=== PATIENT | male | born 1955 | race Caucasian/White ===

== ENCOUNTER → 2017-05-04 | Outpatient (CLI) | payer BC ==
[~2017-05-04] MED LIST: ACET-24 PO; ASPEC81 PO; CLB200 PO; IBUP-103 PO; METF500T5 PO; RXC5 PO; SENN-61 PO
== END | disposition home or self-care (01) ==
LOC: C.LABBFT 11:41
PROVIDERS: ATTEND Nurse Practitioner
DX: E11.65 Type 2 diabetes mellitus with hyperglycemia (principal)

== ENCOUNTER 2017-05-09 07:57 | Inpatient (IN) | payer BC ==
[2017-04-12 11:26] VITALS: Ht 167.6 cm; Wt 93.3 kg
--- NOTE | 2017-04-12 11:46 | PAT Medication Instructions ---
Service Date Apr 12, 2017. 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
--- NOTE | 2017-04-12 12:42 | DIAGNOSTIC IMAGING REPORT ---
CHEST 2 VIEWS ROUTINE CLINICAL HISTORY: PAT preoperative evaluation COMPARISON STUDY: No previous studies for comparison. FINDINGS: The bones soft tissues and hemidiaphragms are normal. The cardiomediastinal silhouette is normal. The lungs are clear. The pulmonary vasculature is normal. IMPRESSION: Negative chest. The above report was generated using voice recognition software. It may contain grammatical, syntax or spelling errors. Electronically signed by: Tam Mcmahon M.D. 04/12/2017 12:41 PM Dictated Date/Time: 04/12/2017 12:40 PM
[2017-04-12 13:29] LABS: BASO % 0.7 %; BASO ABS # 0.05 K/uL (0-0.2); EOS % 2.4 %; EOS ABS # 0.17 K/uL (0-0.5); HEMATOCRIT 46.7 % (42-52); HEMOGLOBIN 16.1 g/dL (14.0-18.0); IG# 0.02 K/uL (0.00-0.02); LYMPH % 24.6 %; LYMPH ABS # 1.77 K/uL (1.2-3.4); MEAN CELL VOLUME 88.6 fL (80-100); MEAN CORPUSCULAR HEMOGLOBIN 30.6 pg (25-34); MEAN CORPUSCULAR HGB CONC 34.5 g/dl (32-36); MEAN PLATELET VOLUME 10.5 fL (7.4-10.4); MONO % 7.9 %; MONO ABS # 0.57 K/uL (0.11-0.59); NEUT % 64.1 %; NEUT ABS # 4.61 K/uL (1.4-6.5); PLATELET COUNT 177 K/uL (130-400); RED CELL DISTRIBUTION WIDTH CV 13.5 % (11.5-14.5); RED CELL DISTRIBUTION WIDTH SD 43.6 fL (36.4-46.3); WHITE BLOOD COUNT 7.19 K/uL (4.8-10.8)
[2017-04-12 13:41] LABS: PTT PATIENT 29.3 SECONDS (21.0-31.0)
[2017-04-12 14:17] LABS: ALBUMIN 3.7 gm/dl (3.4-5.0); CREATININE 0.93 mg/dl (0.60-1.40); POTASSIUM 3.9 mmol/L (3.5-5.1)
--- NOTE | 2017-04-19 13:27 | HISTORY & PHYSICAL EXAMINATION ---
DATE OF ADMISSION: 05/09/2017 CHIEF COMPLAINT: Left knee pain. HISTORY OF PRESENT ILLNESS: Mr. Geller is a 62-year-old male with a 14-year history of left knee pain. The patient rates his pain as 7/10. He has pain with his daily activities. He has limited standing and walking tolerance. Pain is worse with weightbearing. He has had knee arthroscopy, injections, home exercise program, and anti-inflammatories without relief. He has failed conservative treatment and is now scheduled for left knee replacement with Dr. Diaz. PAST MEDICAL HISTORY: Benign. He denies heart disease, diabetes or DVT. PAST SURGICAL HISTORY: Bilateral knee arthroscopy. SOCIAL HISTORY: The patient rarely drinks alcohol. He denies tobacco use. 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 FAMILY HISTORY: Positive for hypertension, negative for DVT. MEDICATIONS: Advil p.r.n. ALLERGIES: None. REVIEW OF SYSTEMS: See HPI. Ten other systems reviewed, all negative. PHYSICAL EXAMINATION: VITAL SIGNS: Height 5 feet 6 inches, weight 207 pounds, BMI 33. GENERAL: This is a well-developed, well-nourished male who is alert and oriented x3. Mood and affect are appropriate. HEENT: Normocephalic, atraumatic. Mucous membranes are moist and intact. NECK: Supple without lymphadenopathy. HEART: Regular rate and rhythm without murmurs, rubs or gallops. LUNGS: Clear to auscultation without wheezes or rhonchi. ABDOMEN: Soft and nontender. Bowel sounds are equal and active. EXTREMITIES: No ecchymosis, redness or warmth. He has neutral alignment. Range of motion is from 0-115 degrees with +1 laxity. He has no distal edema, no effusion. He is neurovascularly intact. X-RAY EXAMINATION: AP and lateral views show joint space narrowing and osteophyte formation. IMPRESSION: Degenerative joint disease, left knee. PLAN: The patient will be admitted for a left total knee arthroplasty. We will plan on aspirin for DVT prophylaxis. The patient will have [facility] for home PT and referral has been placed preoperatively.
[~2017-05-09] VITALS: Ht 167.6 cm; Wt 93.3 kg
[2017-05-09] VITALS (7 sets, daily range): BP systolic 107–151; BP diastolic 68–84; PULSE 58–76; TEMP 36.4–36.8; O2SAT 94–97
[2017-05-09] MEDS: TRANEXAMIC ACID INJ 1,000 MG in SYRINGE 0 ML IV SCH ×2 (06:30→09:35)
[~2017-05-09 07:57] MED LIST changes: -ACET-24 PO; +ACETAMINOPHEN 500 MG TAB PO SCH; -ASPEC81 PO; +ATROPINE SULFATE 0.1 MG/ML 5ML SYR IV PRN; +BUPIVACAINE 0.25% 30 ML VIAL ONE; +BUPIVACAINE 0.5 % 5 MG/1 ML PF 10ML VIAL ONE; +CEFAZOLIN 2000MG IV PUSH 15 ML IV SCH; -CLB200 PO; +CeleBREX 200 MG CAP PO SCH; +DEXAMETHASONE 4 MG TAB PO SCH; +EpHEDrine SULFATE INJ 50 MG/ML AMP IV PRN; +FAMOTIDINE 20 MG TAB PO SCH; +FENTANYL CITRATE INJ 50 MCG/1 ML 2 ML VIAL IV PRN; +FENTANYL CITRATE INJ 50 MCG/1 ML 2 ML VIAL ONE; +GABAPENTIN 300 MG CAP PO SCH; +LACTATED RINGER'S 1000ML 1,000 ML IV SCH; +LACTATED RINGER'S 1000ML IV SCH; +LACTATED RINGER'S 500 ML IV SCH; -METF500T5 PO; +METOCLOPRAMIDE HCL 10 MG TAB PO SCH; +MIDAZOLAM HCL 1 MG/ML 2ML VIAL ONE; +ONDANSETRON INJ 2 MG/ML 2 ML VIAL IV PRN; +ROPIVACAINE 5MG/ML 30 ML 150 MG, BUPIVACAINE 0.5% MPF INJ 30 ML, EpINEphrine HCL INJ 0.... INFIL SCH; -RXC5 PO; -SENN-61 PO
--- NOTE | 2017-05-09 08:33 | History & Physical Bridge Note ---
H&P Re-Evaluation Bridge Note: I have examined the patient, reviewed the History & Physical and in the interval since the performance of the History & Physical I have noted the following changes of clinical significance: No changes noted
[2017-05-09] MEDS ORDERED: METF500T5 PO (08:39)
[2017-05-09] MEDS ORDERED: ORTHO JOINT ANESTHETIC ONE (09:47)
[2017-05-09] MEDS ORDERED: LIDOCAINE HCL 2% 2 ML VIAL (20MG/ML) ONE (09:47)
[2017-05-09] MEDS ORDERED: PROPOFOL IV EMULSION 10 MG/ML 20 ML VIAL IV ONE (09:47)
[2017-05-09] MEDS ORDERED: POVIDONE-IODINE OP SOLN 30 ML BTL ONE (09:47)
[2017-05-09] MEDS ORDERED: ONDANSETRON INJ 2 MG/ML 2 ML VIAL ONE (09:47)
[2017-05-09] MEDS ORDERED: BACITRACIN 50000 UNIT VIAL ONE (09:47)
[2017-05-09] MEDS ORDERED: MIDAZOLAM HCL 1 MG/ML 2ML VIAL ONE (10:48)
--- NOTE | 2017-05-09 11:19 | [facility] Post Operative Brief Note ---
Immediate Operative Summary Operative Date May 09, 2017. Pre-Operative Diagnosis Degenerative Joint Disease, Left Knee Post-Operative Diagnosis same Procedure(s) Performed Ltka Surgeon Dr. Diaz Overlock Collar Setter Surgeon(s) Berna Gallagher PA-C Estimated Blood Loss 10cc Findings Consistent with Post-Op Diagnosis Specimens A: Left knee bone and tissue Anesthesia Type MAC Spinal Regional Complication(s) none Disposition Accompanied Pt To Recover: no Disposition: Recovery Room / PACU
[2017-05-09] MEDS ORDERED: TRAMADOL HCL 50 MG TAB PO PRN (12:00)
[2017-05-09] MEDS ORDERED: SOD PHOSPHATE/SOD BIPHOSPHATE ENEMA 132 ML BTL PR PRN (12:00)
[2017-05-09] MEDS ORDERED: ZOLPIDEM TARTRATE 5 MG TAB PO PRN (12:00)
[2017-05-09] MEDS ORDERED: MoRPHine SULFATE 2 MG/ML CARP IV PRN (12:00)
[2017-05-09] MEDS ORDERED: MAGNESIUM HYDROXIDE SUSP 30 ML UDC PO PRN (12:00)
[2017-05-09] MEDS ORDERED: BISACODYL 10 MG SUPP PR PRN (12:00)
[2017-05-09] MEDS ORDERED: ONDANSETRON INJ 2 MG/ML 2 ML VIAL IV PRN (12:00)
[2017-05-09] MEDS ORDERED: ALUMINUM/MAGNESIUM/SIMETH (MAALOX MAX) 30 ML UDC PO PRN (12:00)
--- NOTE | 2017-05-09 12:26 | Anesthesiology Progress Note ---
Anesthesia Post Op Note Date & Time May 09, 2017 at 12:26 Vital Signs Pain Intensity: 0 Vital Signs Past 12 Hours Date Time Temp Pulse Resp B/P (MAP) Pulse Ox O2 Delivery O2 Flow Rate FiO2 05/09/17 12:20 36.2 57 16 118/66 93 Nasal Cannula 2 05/09/17 12:10 57 16 95/68 95 Nasal Cannula 2 05/09/17 12:00 58 16 110/62 94 Nasal Cannula 2 05/09/17 11:54 36.6 71 14 123/62 94 Nasal Cannula 2 05/09/17 08:40 36.6 76 18 139/84 94 Room Air Notes Mental Status: alert / awake / arousable, participated in evaluation Pt Amnestic to Procedure: Yes Nausea / Vomiting: adequately controlled Pain: adequately controlled Airway Patency, RR, SpO2: stable & adequate BP & HR: stable & adequate Hydration State: stable & adequate Neuraxial Anesthesia: was administered, sensory block is resolving Anesthetic Complications: no major complications apparent
--- NOTE | 2017-05-09 12:28 | DIAGNOSTIC IMAGING REPORT ---
L KNEE 1 OR 2 VIEWS ROUTINE HISTORY: 62 years-old Male AP/LATERAL IN PACU LEFT KNEE left knee total joint arthroplasty and patella resurfacing. Degenerative joint disease. COMPARISON: None available TECHNIQUE: 2 views of the left knee FINDINGS: Postoperative changes compatible with recent left knee total joint arthroplasty and patella resurfacing. Alignment is satisfactory. No periprosthetic fracture or retained foreign body identified. Overlying gauze material is noted along with a surgical drain which is in place along with expected postsurgical soft tissue swelling and deep tissue air. IMPRESSION: Left knee total joint arthroplasty and patellar resurfacing with satisfactory alignment. The above report was generated using voice recognition software. It may contain grammatical, syntax or spelling errors. Electronically signed by: Damion Connelly M.D. 05/09/2017 12:27 PM Dictated Date/Time: 05/09/2017 12:26 PM
--- NOTE | 2017-05-09 12:31 | OPERATIVE REPORT ---
DATE OF OPERATION: 05/09/2017 PREOPERATIVE DIAGNOSIS: Osteoarthritis, left knee. POSTOPERATIVE DIAGNOSIS: Osteoarthritis, left knee. PROCEDURE: Left total knee arthroplasty. SURGEON: Dr. Diaz. FARM REPORTER: ANDRADE Joseph ANESTHESIA: Spinal. COMPLICATIONS: None. IMPLANTS USED: Femoral size 5, tibia size 4, patella size 36, and tibial poly 13. OPERATION AND FINDINGS: Following induction of spinal anesthesia, the patient's left leg was prepped and draped in the usual sterile manner. Limb was exsanguinated with an Esmarch bandage and tourniquet was inflated to 350 mmHg. A longitudinal incision was made anteriorly. Subcutaneous tissue was sharply dissected. Electrocautery was used for hemostasis. Prepatellar bursa was incised and median parapatellar incision was performed. Patella was everted and the knee was flexed. Fat pad was removed to aid in visualization and the anterior and posterior cruciate ligaments were removed. The medial face of the tibia was cleared of soft tissue first with a Bovie and a Mccray elevator. This tissue was retracted posteriorly using a blunt Hohmann. A Gaytan retractor was used to expose the synovium above on the anterior aspect of the femur and this was removed down to bone. The PSI guide was placed on the distal femur and two pins were placed anteriorly and kept in position and two additional pins were placed distally and removed. The distal femoral cutting block was placed in position and the distal femoral cut was used in the +0 setting. Next, the cutting block was removed and the femoral 5 block was placed in the distal end of the femur. Care was taken to ensure appropriate external rotation and feeler gauge was used to ensure no notching would occur. The femoral block was centered on the distal femur and in the medial and lateral direction and was fixed using two bone screws. The gold pins were then removed. The oscillating saw was used to create the bone cuts and the distal femoral cutting block was removed and the reciprocating saw was used to further trim the femoral cuts as well as a deep in the area for the trochlear groove. Next, posterior condyle remnants were removed. Following this, a meniscal clamp and knife were utilized to remove the anterior portion of both medial and lateral meniscus. The proximal tibia PSI guide was placed into position and the proximal tibial cutting guide was screwed into position. The extra medullary alignment guide was utilized to ensure appropriate alignment. The proximal tibia was cut and the proximal tibial cutting block was removed and this bone fragment was removed. The appropriate guide was used to perform the notch cut on the distal femur and a lamina staff respiratory therapist and a cochlear knife were utilized to finish both medial and lateral meniscectomies to remove any remnants of the posterior or anterior cruciate ligaments. Following this, the distal femoral component was impacted into position and blunt Tay was used to sublux the tibia anteriorly. The proximal tibia was sized and a 4 tibial tray was chosen as the size to be used. This was put into position and appropriate external rotation and a double check with extramedullary alignment guide was performed. The canal for the tibial stem was prepared first with a 17 mm drill and then the punch and a mallet and the trial tibial poly was placed. A 13 was chosen the size to be used. It was brought to extension and the patella was prepared with the patellar reamer. A 36 component was chosen the size to be used. The trial component was placed and knee was taken through a full range of motion and there was found to be no lateral subluxation of the tibia. No lateral release was required. The trials were all removed. The final components were obtained and assembled. Cement was mixed. The knee was thoroughly irrigated and the ortho mix was injected about the knee joint. The final components were cemented into position. After thoroughly suctioning and drying the bone ends, all excess cement was removed. The knee was held in extension while the cement hardened. The wound was irrigated and closed over a Hemovac drain. #1 Vicryl was used to close the extensor mechanism. Subcutaneous tissues closed using 0 Dexon. Skin was closed with gila. Sterile dressing of Adaptic, 4 x 4's, sterile Webril, and Greg was applied. The patient tolerated the procedure well. Due to the complex nature of the procedure, the entire surgery was performed with the operational assistance of ANDRADE Joseph. The front office medical assistant, under direct supervision, was involved in the actual performance of all aspects of the surgical procedure including hemostasis, tissue retraction and incision, instrument management, patient positioning, and wound closure. DISPOSITION: Recovery room, stable. I attest to the content of the Intraoperative Record and any orders documented therein. Any exception s are noted below.
[2017-05-09] MEDS ORDERED: PHARMACY GLYCEMIC MGMT CONSULT PRN (13:55)
[2017-05-09] MEDS: ACETAMINOPHEN 500 MG TAB PO SCH ×2 (14:06→21:12)
[2017-05-09] MEDS: KETOROLAC TROMETHAMINE 30 MG/ML VIAL IV. SCH ×2 (14:06→21:11)
--- NOTE | 2017-05-09 15:11 | Pharmacy Progress Note ---
Glycemic Control Intl Consult Date of Service May 09, 2017. Scope Glycemic Pharmacist consulted by Xochitl DOWELL on 05/09/17 for glycemic control and to write orders per [facility] inpatient glycemic control protocol Objective Weight (Kilograms): 93.300 Accuchecks BSG (last 24hrs): Test 05/09/17 08:28 05/09/17 12:13 05/09/17 13:37 Bedside Glucose 157 mg/dl (70-99) 171 mg/dl (70-99) 182 mg/dl (70-99) Recent Pertinent Medications Outpatient Anti-diabetic Regimen: * Metformin ER 500 mg PO BID * A1c = 8 % 04/12/17 Risk Factors for Insulin Resistance: * Steroids: Ortho + dexamethasone 8 mg PO pre-op * Recent Surgery: POD #0 L-TKA * Diet: T2DM Assessment & Plan ASSESSMENT: * 62 yr old T2DM male s/p L-TKA. * Pt is maintained on oral antidiabetic agents as an outpatient. Will hold oral agents for admission and utilize SQ basal bolus insulin regimen which is the recommended regimen for inpatient glycemic control. * Will initiate weight based insulin dosing for insulin nehal patient and titrate based on BSG trends. PLAN FOR INPATIENT GLYCEMIC CONTROL: * Holding metformin - will resume once evidence of stable renal function and patient tolerating oral diet * Basal insulin * Lantus 23 units SQ x 1 with dinner * Bolus Insulin * NOVOLOG per scale ACHS or Q6hrs while NPO * Goal Range: Low 110 mg/dL - High 140 mg/dL * Correction Factor: 15 mg/dL/unit * Nutritional / Prandial insulin per carb ratio of 1 unit per 6 grams CHO consumed * Overnight checks at 00 and 04 * Please note that the plan above was derived based on current level of insulin resistance and hospital stress. These recommendations are appropriate for inpatient admission only. Plan of care upon discharge will need to be reassessed to avoid potential outpatient hypo/hyperglycemia. Thank you.
[2017-05-09] MEDS ORDERED: LANTUS PER UNIT CHARGE SQ ONE (16:00)
[2017-05-09] MEDS: SODIUM CHLORIDE 0.9% 1000ML 1,000 ML IV SCH (16:06)
[2017-05-09] MEDS: CEFAZOLIN IV 2,000 MG in SYRINGE 5 ML IV SCH (18:45)
[2017-05-09] MEDS: INSULIN ASPART 100 UNITS/ML 3 ML PEN SC SCH ×2 (18:52→21:25)
[2017-05-09] MEDS ORDERED: SENNA 8.6 MG TAB PO SCH (21:00)
[2017-05-09] MEDS: ASPIRIN 81 MG ECTAB PO SCH (21:09)
[2017-05-09] MEDS: OXYCODONE HCL IR 5 MG TAB (IMMEDIATE RELEASE) PO PRN (23:02)
[2017-05-10] MEDS: INSULIN ASPART 100 UNITS/ML 3 ML PEN SC SCH ×4 (00:27→14:00)
[2017-05-10] MEDS: SODIUM CHLORIDE 0.9% 1000ML 1,000 ML IV SCH ×2 (01:56→09:00)
[2017-05-10] MEDS: CEFAZOLIN IV 2,000 MG in SYRINGE 5 ML IV SCH (01:56)
[2017-05-10] MEDS: KETOROLAC TROMETHAMINE 30 MG/ML VIAL IV. SCH ×2 (01:57→07:52)
[2017-05-10 04:05] VITALS: BP 127/73; PULSE 68; TEMP 36.4; O2SAT 95
[2017-05-10] MEDS: ACETAMINOPHEN 500 MG TAB PO SCH ×2 (06:24→14:01)
[2017-05-10 06:26] LABS: HEMATOCRIT 43.4 % (42-52); HEMOGLOBIN 14.8 g/dL (14.0-18.0); MEAN CELL VOLUME 88.8 fL (80-100); MEAN CORPUSCULAR HEMOGLOBIN 30.3 pg (25-34); MEAN CORPUSCULAR HGB CONC 34.1 g/dl (32-36); MEAN PLATELET VOLUME 10.1 fL (7.4-10.4); PLATELET COUNT 227 K/uL (130-400); RED CELL DISTRIBUTION WIDTH CV 13.2 % (11.5-14.5); RED CELL DISTRIBUTION WIDTH SD 42.5 fL (36.4-46.3); WHITE BLOOD COUNT 17.52 K/uL (4.8-10.8)
[2017-05-10 06:59] LABS: CALCIUM 8.9 mg/dl (8.5-10.1); CREATININE 1.12 mg/dl (0.60-1.40); POTASSIUM 3.8 mmol/L (3.5-5.1)
[2017-05-10 07:49] VITALS: BP 145/85; PULSE 59; TEMP 36.8; O2SAT 94
[2017-05-10] MEDS ORDERED: LANTUS PER UNIT CHARGE SQ SCH ×2 (08:00→21:00)
--- NOTE | 2017-05-10 08:03 | Orthopedic Progress Note ---
Orthopedic Progress Note Date of Service May 10, 2017. Subjective Post OP Day: 1 Reports: feeling well, Denies: complaints Objective calves soft nontender, N/V intact, dressing C/D/I, A&O x3, toes mobile, hemovac drainage (75ml latest shift) Date Time Temp Pulse Resp B/P (MAP) Pulse Ox O2 Delivery O2 Flow Rate FiO2 05/10/17 07:49 36.8 59 20 145/85 (105) 94 05/10/17 07:20 Room Air 05/10/17 04:05 36.4 68 18 127/73 (91) 95 Room Air 05/09/17 23:25 95 Room Air 05/09/17 22:50 36.7 71 17 143/80 (101) 95 Room Air 05/09/17 20:15 36.4 70 18 151/78 (102) 95 Room Air 05/09/17 16:00 Room Air 05/09/17 13:39 36.6 63 20 143/81 (101) 96 Nasal Cannula 2.0 05/09/17 13:16 36.5 70 20 114/80 (91) 97 Nasal Cannula 2.0 05/09/17 12:45 Nasal Cannula 2.0 05/09/17 12:45 Nasal Cannula 2.0 05/09/17 12:45 36.8 58 16 107/68 (81) 97 Nasal Cannula 2.0 05/09/17 12:30 61 16 119/79 92 Nasal Cannula 2 05/09/17 12:20 36.2 57 16 118/66 93 Nasal Cannula 2 05/09/17 12:10 57 16 95/68 95 Nasal Cannula 2 05/09/17 12:00 58 16 110/62 94 Nasal Cannula 2 05/09/17 11:54 36.6 71 14 123/62 94 Nasal Cannula 2 05/09/17 08:40 36.6 76 18 139/84 94 Room Air Laboratory Results 24 Hours: Test 05/10/17 06:13 Hematocrit 43.4 % Hemoglobin 14.8 g/dL Assessment & Plan Assessment: POD 1 s/p Left TKA Plan: PT/OT today. Planning for home with home health Inhouse Planning Pain Management: Celebrex, Toradol, Morphine, PO Tylenol, Oxy IR DVT Prophylaxis: TEDs, SCDs, ASA Discharge Planning Discharge Planning: home with home health
[2017-05-10] MEDS: ASPIRIN 81 MG ECTAB PO SCH (08:40)
--- NOTE | 2017-05-10 08:54 | Pharmacy Progress Note ---
Glycemic Control Progress Note Date of Service May 10, 2017. Scope Glycemic Pharmacist consulted for glycemic control to write orders per [facility] inpatient glycemic control protocol. Objective Accuchecks BSG (last 24hrs): Test 05/09/17 12:13 05/09/17 13:37 05/09/17 16:50 05/09/17 20:47 Bedside Glucose 171 mg/dl (70-99) 182 mg/dl (70-99) 256 mg/dl (70-99) 244 mg/dl (70-99) Test 05/10/17 00:06 05/10/17 04:01 05/10/17 06:13 05/10/17 08:04 Bedside Glucose 156 mg/dl (70-99) 124 mg/dl (70-99) 138 mg/dl (70-99) Random Glucose 137 mg/dl (70-99) Outpatient Anti-Diabetic Meds * Metformin ER 500 mg PO BID * A1c = 8 % 04/12/17 Assessment & Plan ASSESSMENT: * 62 yr old T2DM male POD # 1 s/p L-TKA. Postoperative hyperglycemia resolved. * Fasting BSG of 138 mg/dL is near goal. Will give a small dose of Lantus this morning (based on weight/stress 1). * Prandial BSGs improving. Will loosen bolus insulin parameters since effect of dexamethasone should be wearing off at this point. * Patient is tolerating oral diet, Scr at baseline -> resume metformin starting with dinner PLAN FOR INPATIENT GLYCEMIC CONTROL: * Resume metformin ER 500 mg PO BID * Basal insulin * Lantus 9 units SQ this AM * Lantus 9 units SQ HS if BSG is > 150 mg/dL * Bolus Insulin - loosen * NOVOLOG per scale ACHS or Q6hrs while NPO * Goal Range: Low 110 mg/dL - High 140 mg/dL * Correction Factor: 20 mg/dL/unit * Nutritional / Prandial insulin per carb ratio of 1 unit per 8 grams CHO consumed DISCHARGE RECOMMENDATIONS: * A1c of 8% indicates less than ideal outpatient glycemic control * Recommend maximizing metformin dose as tolerated * Increase by 500 mg per week to maximum of 2000 mg twice daily with meals Thank you.
[2017-05-10] MEDS ORDERED: MULTIVITAMIN TAB PO SCH (09:00)
[2017-05-10] MEDS ORDERED: PANTOprazole SOD 40 MG TAB PO SCH (09:00)
--- NOTE | 2017-05-10 09:32 | Discharge Instructions ---
Discharge Instructions Date of Service May 10, 2017. Admission Reason for Admission: Left Knee Osteoarthritis Discharge Discharge Diagnosis / Problem: Left Knee Djd Discharge Goals Goal(s): Decrease discomfort, Improve function, Increase independence Activity Recommendations Activity Limitations: per Instructions/Follow-up section Weightbearing Status: Left weightbearing (as tolerated) . Instructions / Follow-Up Instructions / Follow-Up ACTIVITY RECOMMENDATIONS: SELF CARE INSTRUCTIONS AFTER TOTAL KNEE REPLACEMENT A. You may need to continue a physical therapy program after discharge from the hospital. There are several options available to you. Your doctor will assist you in selecting the best one for you. 1. An out-patient facility 2 to 3 times a week for therapy or home therapy. 2. Continue working on all exercises taught to you in the hospital. Your goals should be to increase bending of your knee to 90 degrees and beyond and to fully straighten your knee. B. You may progress at your own pace from walking with a walker or crutches to a cane; then to no assistive devices. C. Make walking a part of your daily routine. Be up as much as comfortable with rest periods throughout the day. Rest with leg elevation is very important. Use the ice wrap frequently for the first 3-4 weeks. D. There are no restrictions on activities. You may ride in a car, shop, participate in torpedo specialist and all social activities. E. Wear the long elastic stockings (PRISCILA hose) 20 hours a day for 2 weeks after surgery. They can be removed several times a day for laundering and for a bath. F. You may shower, no tub baths until cleared by your doctor. SPECIAL CARE INSTRUCTIONS: VERY IMPORTANT TO READ AND REVIEW A. There are a few signs you need to watch for after you are home. Call [facility] [place] if you notice any of the followin. Increased severe knee pain. Some pain is expected especially when you exercise. 2. Increased swelling in your leg or knee; pain or swelling of the calf muscle in either lower leg. 3. Any fluid drainage from the incision. 4. Shortness of breath or chest pain. B. Please call [facility] at if you have any concerns or questions about your operation or recovery. The doctor or his nurse will return your call promptly. C. You must take antibiotics before dental work, bladder, bowel or other surgery. Your doctor will provide you with a permanent care to carry describing this precaution. IMPORTANT: * REMEMBER TO TAKE ASPIRIN, 81 MG, TWICE DAILY FOR 4 WEEKS UNLESS OTHERWISE DIRECTED. THIS IS YOUR BLOOD THINNER. * HIGH RISK PATIENTS MAY BE PRESCRIBED A STRONGER BLOOD THINNER. THIS WILL BE PROVIDED AT DISCHARGE. * CALL IF INCREASED PAIN, REDNESS, DRAINAGE OR FEVER GREATER THAT 101. * WEAR PRISCILA HOSE 20 HOURS PER DAY FOR 2 WEEKS. * Silverlon- This is a large adhesive bandage that contains silver ions. This helps your incision heal by fighting off bacteria and protecting it from the outside environment. You are permitted to shower with this dressing. This will remain on your incision for 7 days and then should be removed. Some visible blood or drainage through the dressing window is normal. If there is significant drainage or leaking noted before the 7 days notify your doctor's office immediately. Once removed, keep incision clean and dry. If there is any drainage or redness noted, please call your surgeon. . * You have a Zipline closure system on your wound. It will remain on for 14 days. Keep the wound covered with 4x4 gauze or similar to protect the wound and to keep your clothes from getting caught on the Zipline. You may shower in 72 hours. Do not soak the wound. No tub baths. Clean around the wound but do not scrub it. Call the office if the wound appears to be opening or if Zipline is coming off prematurely. [phone] FOLLOW UP VISIT: If appointment is not already scheduled: Please call [facility] [place] to make a follow-up appointment for 2 weeks after your surgery at . Current Hospital Diet Patient's current hospital diet: Diabetes Type 2 Diet Discharge Diet Recommended Diet: Diabetes Type 2 Diet Procedures Procedures Performed: left total knee arthroplasty, cemented Pending Studies Studies pending at discharge: no Laboratory Results Hemoglobin A1c Test 04/12/17 11:58 Range/Units Estimated Average Glucose 183 mg/dl Hemoglobin A1c 8.0 H 4.5-5.6 % Lipid Panel Test 05/04/17 11:50 Range/Units Triglycerides Level 255 H 0-150 mg/dl Cholesterol Level 267 H 0-200 mg/dl HDL Cholesterol 24 mg/dl Cholesterol/HDL Ratio 11.1 LDL Cholesterol, Calculated 192 mg/dl Medical Emergencies . Who to Call and When: Medical Emergencies: If at any time you feel your situation is an emergency, please call 911 immediately. . Non-Emergent Contact Non-Emergency issues call your: Surgeon Call Non-Emergent contact if: temperature is above 101.5, your pain is not controlled, your pain is worsening, wound has increased drainage, wound has increased redness . "Provider Documentation" section prepared by Stephen Vogel. . VTE Core Measure Inpt VTE Proph given/why not?: Other Anticoagulation, T.E.D. Stockings, SCD's [place] Drug Monitoring Program Search Results: patient reviewed within database, no issues identified
[2017-05-10 10:02] VITALS: BP 163/89; PULSE 71; O2SAT 95
--- NOTE | 2017-05-10 11:09 | Anesthesiology Progress Note ---
Anesthesia Post Op Note Date & Time May 10, 2017 at 11:08 Vital Signs Pain Intensity: 0.0 Vital Signs Past 12 Hours Date Time Temp Pulse Resp B/P (MAP) Pulse Ox O2 Delivery O2 Flow Rate FiO2 05/10/17 07:49 36.8 59 20 145/85 (105) 94 05/10/17 07:20 Room Air 05/10/17 04:05 36.4 68 18 127/73 (91) 95 Room Air 05/09/17 23:25 95 Room Air Notes Mental Status: alert / awake / arousable, participated in evaluation Pt Amnestic to Procedure: Yes Nausea / Vomiting: adequately controlled Pain: adequately controlled Airway Patency, RR, SpO2: stable & adequate BP & HR: stable & adequate Hydration State: stable & adequate Neuraxial Anesthesia: sensory block resolved Anesthetic Complications: no major complications apparent
[2017-05-10] MEDS: OXYCODONE HCL IR 5 MG TAB (IMMEDIATE RELEASE) PO PRN (11:19)
[2017-05-10 12:12] VITALS: BP 159/73; PULSE 62; TEMP 36.5; O2SAT 97
[2017-05-10] MEDS ORDERED: ASPEC81 PO (13:56)
[2017-05-10] MEDS ORDERED: RXC5 PO (13:56)
[2017-05-10] MEDS ORDERED: SENN-61 PO (13:56)
[2017-05-10] MEDS ORDERED: ACET-24 PO (13:56)
[2017-05-10] MEDS ORDERED: CLB200 PO (13:56)
[2017-05-10 14:26] VITALS: BP 159/73; PULSE 62; TEMP 36.5; O2SAT 97
[2017-05-10] MEDS ORDERED: METFORMIN HCL 500 MG TABCR PO SCH (17:45)
[2017-05-10] MEDS ORDERED: CeleBREX 200 MG CAP PO SCH (21:00)
--- NOTE | 2017-05-12 09:01 | DISCHARGE SUMMARY ---
DISCHARGE DIAGNOSIS: Degenerative joint disease, left knee. SECONDARY DIAGNOSIS: None. CONSULTS: None. COMPLICATIONS: None. PROCEDURE: The patient underwent a left total knee arthroplasty with Dr. Diaz on 05/09/2017. BRIEF HISTORY: Please see previously dictated history and physical. HOSPITAL SUMMARY: The patient was admitted on the above day for the above procedure. Procedure went without complication. Postop day 1, the patient was feeling well without complaints. He denied chest pain or shortness of breath. Vital signs were stable. He was afebrile. Dressing was clean, dry and intact. He was neurovascularly intact. Calves were soft and nontender. Hemovac drained 75 mL. Hemoglobin was 14.8. The patient began physical therapy per protocol and was discharged to home later that day in stable condition. For further review please see the chart. Lab, x-ray data and discharge instructions as per chart.
== END 2017-05-10 14:55 | disposition home health service (06) | DRG 470 ==
LOC: C.ACU 07:57 → C.3E 12:08 → ENRESERV 12:18 → CANBEDREQ 17:13
PROC: 0SRD0J9 Replacement of Left Knee Joint with Synthetic Substitute, Cemented, Open Approach (ICD-10-PCS; principal; 2017-05-09 10:45)
DX: M17.12 Unilateral primary osteoarthritis, left knee (principal); Z82.49 Family history of ischemic heart disease and other diseases of the circulatory system

== ENCOUNTER → 2017-07-01 | Outpatient (CLI) | payer BC ==
[~2017-07-01] MED LIST changes: +ACET-24 PO; -ACETAMINOPHEN 500 MG TAB PO SCH; +ASPEC81 PO; -ATROPINE SULFATE 0.1 MG/ML 5ML SYR IV PRN; -BUPIVACAINE 0.25% 30 ML VIAL ONE; -BUPIVACAINE 0.5 % 5 MG/1 ML PF 10ML VIAL ONE; -CEFAZOLIN 2000MG IV PUSH 15 ML IV SCH; +CLB200 PO; -CeleBREX 200 MG CAP PO SCH; -DEXAMETHASONE 4 MG TAB PO SCH; -EpHEDrine SULFATE INJ 50 MG/ML AMP IV PRN; -FAMOTIDINE 20 MG TAB PO SCH; -FENTANYL CITRATE INJ 50 MCG/1 ML 2 ML VIAL IV PRN; -FENTANYL CITRATE INJ 50 MCG/1 ML 2 ML VIAL ONE; -GABAPENTIN 300 MG CAP PO SCH; -IBUP-103 PO; -LACTATED RINGER'S 1000ML 1,000 ML IV SCH; -LACTATED RINGER'S 1000ML IV SCH; -LACTATED RINGER'S 500 ML IV SCH; +METF500T5 PO; -METOCLOPRAMIDE HCL 10 MG TAB PO SCH; -MIDAZOLAM HCL 1 MG/ML 2ML VIAL ONE; -ONDANSETRON INJ 2 MG/ML 2 ML VIAL IV PRN; -ROPIVACAINE 5MG/ML 30 ML 150 MG, BUPIVACAINE 0.5% MPF INJ 30 ML, EpINEphrine HCL INJ 0.... INFIL SCH; +RXC5 PO; +SENN-61 PO
[2017-07-01 12:35] LABS: HEMOGLOBIN A1C 6.4 % (4.5-5.6)
[2017-07-01 12:50] LABS: ALBUMIN 3.9 gm/dl (3.4-5.0); ALT/SGPT 36 U/L (12-78); AST/SGOT 19 U/L (15-37); BLOOD UREA NITROGEN 16 mg/dl (7-18); CALCIUM 9.2 mg/dl (8.5-10.1); CARBON DIOXIDE 26 mmol/L (21-32); CHOLESTEROL 128 mg/dl (0-200); CREATININE 0.93 mg/dl (0.60-1.40); GLUCOSE 139 mg/dl (70-99); SODIUM 139 mmol/L (136-145)
[2017-07-01 12:52] LABS: ALKALINE PHOSPHATASE 76 U/L (45-117); LDL CHOLESTEROL CALCULATED 54 mg/dl; TOTAL PROTEIN 7.4 gm/dl (6.4-8.2)
== END | disposition home or self-care (01) ==
LOC: C.LABBFT 07:42
PROVIDERS: ATTEND Nurse Practitioner
DX: E11.65 Type 2 diabetes mellitus with hyperglycemia (principal); E78.00 Pure hypercholesterolemia, unspecified

== ENCOUNTER 2022-07-15 05:15 | Observation (INO) ==
--- NOTE | 2022-06-25 10:24 | PAT Medication Instructions ---
Medication Instructions Date of Service June 25, 2022 Home Medications Medication Instructions Recorded blood sugar diagnostic (OneTouch #200 ea 01/27/22 Verio test strips) dulaglutide 4.5 mg/0.5 mL 4.5 mg (0.5 mL) subcut Q7D #2 mL 06/02/22 subcutaneous pen injector aspirin 81 mg tablet,delayed release 81 mg PO HS dulaglutide 4.5 mg/0.5 mL subcutaneous pen injector 4.5 mg (0.5 mL) subcut Q7D amlodipine 10 mg tablet 10 mg PO HS empagliflozin 10 mg tablet (Jardiance) 10 mg PO QAM metformin 500 mg tablet,extended release 24 hr 1,000 mg PO HS rosuvastatin 40 mg tablet 40 mg PO HS ticagrelor 90 mg tablet (Brilinta) 90 mg PO HS Continue as directed dulaglutide 4.5 mg/0.5 mL subcutaneous pen injector 4.5 mg (0.5 mL) subcut Q7D ASK your prescriber and surgeon ticagrelor 90 mg tablet (Brilinta) 90 mg PO HS (in order for spinal anesthesia, ticagrelor/Brilinta needs to be stopped 7 days before surgery. Please check if okay with doctor that prescribes this to you) STOP taking 48 hours before surgery metformin 500 mg tablet,extended release 24 hr 1,000 mg PO HS Take evening before surgery aspirin 81 mg tablet,delayed release 81 mg PO HS (continue as normal unless told otherwise by surgeon) amlodipine 10 mg tablet 10 mg PO HS metformin 500 mg tablet,extended release 24 hr 1,000 mg PO HS rosuvastatin 40 mg tablet 40 mg PO HS STOP taking 3 days before surgery empagliflozin 10 mg tablet (Jardiance) 10 mg PO QAM Other Notes If you have any questions please call us at [phone] or [phone] or or [phone]
--- NOTE | 2022-07-02 09:21 | Anesthesiology Consultation ---
Date of Service July 02, 2022 Assessment & Plan (1) Encounter for pre-operative examination: - COVID screening: Per assessment on 07/02: No known COVID-19 positive contacts or current COVID-19 related symptoms. Travel screen negative. Patient vaccinated. At surgeon discretion if preop Covid testing being done. - Outpatient joint assessment: Pt currently scheduled for inpatient pathway. If surgeon requests review for outpatient joint pathway, patient is not recommended candidate for outpatient joint program from anesthesia standpoint. - Check BSG AM DOS - Brilinta instructions: patient made aware that in order for spinal anesthesia, Brilinta needs to be held 7 days prior to surgery. Patient voiced understanding/will check if okay with prescriber. - Cardiology visit (04/06/21): "TIA: Patient appeared to have transient speech difficulty. I cannot find a note from a neurologist in his record. I am not s ure if the lesion identified on MRI is compatible with his presenting symptoms. However, he did appear to have an embolic event based on the results of the MRI. The etiology of this embolic phenomenon remains unclear. evaluation of the carotids by CT scans not demonstrate obstructive disease. He has not had any identified arrhythmia. A PFO in a patient his age with risk factors is not a clinical concern. I would consider this a cryptogenic stroke. Any circumstances we generally recommend a prolonged period of outpatient telemetry monitoring. This would be for occult atrial fibrillation. I described implantation of a patient activated loop recorder. He seems interested. We will plan on proceeding at his convenience.. PFO: Not a clinical concern in his demographic.. Hypertension.. Hyperlipidemia: Given his risk factors, he has been placed on high-dose atorvastatin. Goal LDL less than 70.. Diabetes mellitus, type 2.. Plan Details Follow Up: no scheduled follow-up" Chart Review Chart Review: Acceptable Risk for Surgery (pending evaluation AM DOS) and Patient seen in Pre Admission Testing Teaching & Discussion Pre-Anesthesia Teaching/Discussion Notes: Instructed NPO after midnight before surgery,except medications with 15 cc of water. Medication instructions provided according to the PAT guidelines. p History Surgery Operation Date: 07/15/22 15:00 Proposed Procedures p Right Total Knee Arthroplasty - Devang Al MD Height/Weight Height: 5 ft 5 in Weight: 87 kg Allergies Allergy/AdvReac Type Severity Reaction Status Date / Time codeine AdvReac Mild N/V Verified 07/02/22 10:27 Tylenol with Codeine #3 TABS AdvReac Mild N/V Uncoded 07/02/22 10:27 Medications Home Medications Medication Instructions Recorded Confirmed Last Taken aspirin 81 mg tablet,delayed 81 mg PO HS 03/20/18 06/25/22 04/03/18 release blood sugar diagnostic (OneTouch #200 ea 01/27/22 05/14/22 Unknown Verio test strips) dulaglutide 4.5 mg/0.5 mL 4.5 mg (0.5 mL) subcut Q7D #2 mL 06/02/22 06/25/22 Unknown subcutaneous pen injector amlodipine 10 mg tablet 10 mg PO HS 06/25/22 06/25/22 Unknown empagliflozin 10 mg tablet 10 mg PO QAM 06/25/22 06/25/22 Unknown (Jardiance) metformin 500 mg tablet,extended 1,000 mg PO HS 06/25/22 06/25/22 Unknown release 24 hr rosuvastatin 40 mg tablet 40 mg PO HS 06/25/22 06/25/22 Unknown ticagrelor 90 mg tablet (Brilinta) 90 mg PO HS 06/25/22 06/25/22 Unknown Past Medical History Medical History Arthritis Diabetes mellitus, type 2 Hyperlipidemia Hypertension Obesity PFO (patent foramen ovale) 2020 echo suggestive of atrial septal aneurysm and very small PFO measuring 1.5 mm in dimension, cardio aware Stroke 2020, reason for Brilinta Exercise / Class Metabolic Activity II 4-5 Yardwork/Stairs/Walk up hill Past Family History Family History Father Diabetes Family history of diabetes mellitus Kidney stones Lung disease Hypertension Sister Diabetes Family history of diabetes mellitus Mother Anxiety Other No family history of adverse response to anesthesia Denies family history of Ovarian cancer Prostate cancer Myocardial infarction Breast cancer Colorectal cancer Past Surgical History Surgical History History of arthroscopy RT/LEFT KNEE History of colonoscopy History of total knee replacement LEFT Past Anesthesia History No Hx of Anesthesia Complications and No Family Hx of Anesthesia Complications History of PONV No Hx of PONV and No Hx of Motion Sickness Social History Smoking Status: Never smoker Hx Alcohol Use: Yes alcohol intake frequency: holidays/special occasions only Hx Substance Use: No substance use type: does not use Review of Systems Patient denies chest pain, shortness of breath, dyspnea on exertion, fever, chills, cough, wheezing, palpitations. Physical Exam Vital Signs VITALS BP 158/80 (typically 130s/70s with close home monitoring per patient) P 75 TEMP 97.9 SP02 95%RA RESP 16 PHYSICAL Full cervical extension range of motion. Full TMJ range of motion. TMD 3 finger breaths Mallampati Score 2 Dentition: intact, + crown on molar Lungs: clear throughout to auscultation Cardiac: regular rate and rhythm, no murmurs noted Spine: normal Carotid arteries: negative bruit Extremities: no edema Lab Results Anesthesia Preop Results Results Anesthesia Widget: WBC 7.83 K/ul (4.8-10.8) 07/02/22 Hgb 17.2 g/dl (14.0-18.0) 07/02/22 Hct 51.8 % (42.0-52.0) 07/02/22 Plt 227 K/uL (130-400) 07/02/22 Na 139 mmol/L (136-145) 07/02/22 K 3.7 mmol/L (3.5-5.1) 07/02/22 Cl 104 mmol/L (98-107) 07/02/22 CO2 27 mmol/L (21-32) 07/02/22 BUN 14 mg/dl (6-23) 07/02/22 Creat 0.96 mg/dl (0.6-1.4) 07/02/22 Glucose Level 114 mg/dl (70-99(Fasting)) H 07/02/22 PT 10.9 Seconds (9.0-12.0) 07/02/22 PTT 31.3 Seconds (21.0-31.0) H 07/02/22 INR 1.0 (0.9-1.1) 07/02/22 TSH 3.728 uIu/ml (0.300-4.500) 05/07/22 HA1c 6.2 % (4.5-5.6) H 07/02/22 Urine Color Yellow 07/02/22 Urine Appearance Clear (Clear) 07/02/22 Urine pH 6.5 (4.5-7.5) 07/02/22 Urine Specific [place] 1.022 (1.000-1.030) 07/02/22 Urine Protein Negative (Negative) 07/02/22 Urine Glucose (UA) 3+ (Negative) H 07/02/22 Urine Ketones Negative (Negative) 07/02/22 Urine Blood Negative (Negative) 07/02/22 Urine Nitrite Negative (Negative) 07/02/22 Urine Bilirubin Negative (Negative) 07/02/22 Urine Urobilinogen Negative (Negative) 07/02/22 Urine Leukocyte Esterase Negative (Negative) 07/02/22 Blood Type O Negative 07/02/22 Antibody Screen NEGATIVE 07/02/22 Testing Electrocardiogram Date: 07/02/22 NSR with sinus arrhythmia at 70bpm. Chest X-Ray Date: 07/02/22 FINDINGS: Cardiac silhouette is mildly enlarged. No pneumothorax, pleural effusion, airspace consolidation or pulmonary edema. Hyperinflation with diaphragmatic flattening. The bones appear grossly intact. IMPRESSION: No acute process. Echocardiogram Date: 02/17/21 LVEF 55-60%. No regional motion abnormality.No thrombus visualized in the left atrial appendage. No evidence of any thrombus or mass in LA cavity. Suggestive of atrial septal aneurysm and very small PFO measuring 1.5 mm in dimension. Other Testing lunchroom monitor (03/19-03/25/21) Normal sinus rhythm. No A-fib. COVID-19 Risk Screen Screening Information COVID-19 Screen Date: 07/02/22 Exposure 21 Days Family/Household +COVID Last 21 Days: No Exposure 10 Days Any COVID Exposure Last 10 Days: No Symptoms Last 10 Days Experienced COVID Sx Last 10 Days: No + COVID 0-90 Days COVID + in Last 0-90 Days: No
--- NOTE | 2022-07-14 10:57 | History & Physical Report ---
Date of Service July 14, 2022 Assessment & Plan (1) Primary osteoarthritis of right knee: Plan: Treatment options discussed with the patient. He has failed conservative measures and would like proceed with surgical invention. Risks, benefits and alternatives to surgery including but not limited to infection, DVT, pain, stiffness, need for revision surgery, damage to blood vessels, damage to nerves, PE, , were discussed with the patient and they wish to proceed. Plan for right total knee arthroplasty scheduled for July 15 at [facility] with Dr. Al. Patient will attend outpatient physical therapy postop. We will resume his home Brilinta and aspirin for DVT prophylaxis. All questions answered. Patient will follow-up postop. History of Present Illness Chief Complaint: Right knee pain Primary Care Provider: RAY Thompson Patient is 67-year-old male with past medical history significant for hypertension, high cholesterol, diabetes, CVA, previous left knee replacement who presents with ongoing right knee pain. Patient has pain interfering with his daily activities. He has failed conservative measures. He would like to proceed with surgical intervention. Patient denies headaches, sweats, fevers, chills, double vision, blurred vision, cough, sore throat, dysphagia, chest pain, sob, wheezing, n/v/d/c, numbness, tingling, fatigue, urinary symptoms, mood disorders. ROS positive for right knee pain and stiffness. Allergies Allergy/AdvReac Type Severity Reaction Status Date / Time codeine AdvReac Mild N/V Verified 07/02/22 10:27 Tylenol with Codeine #3 TABS AdvReac Mild N/V Uncoded 07/02/22 10:27 Home Medications Medication Instructions Recorded Confirmed Type aspirin 81 mg tablet,delayed 81 mg PO HS 03/20/18 06/25/22 History release blood sugar diagnostic (OneTouch #200 ea 01/27/22 05/14/22 Rx Verio test strips) dulaglutide 4.5 mg/0.5 mL 4.5 mg (0.5 mL) subcut Q7D #2 mL 06/02/22 06/25/22 Rx subcutaneous pen injector amlodipine 10 mg tablet 10 mg PO HS 06/25/22 06/25/22 History empagliflozin 10 mg tablet 10 mg PO QAM 06/25/22 06/25/22 History (Jardiance) metformin 500 mg tablet,extended 1,000 mg PO HS 06/25/22 06/25/22 History release 24 hr rosuvastatin 40 mg tablet 40 mg PO HS 06/25/22 06/25/22 History ticagrelor 90 mg tablet (Brilinta) 90 mg PO HS 06/25/22 06/25/22 History lisinopril 2.5 mg tablet 2.5 mg PO DAILY #30 tabs 07/12/22 Rx Past Med/Surg History Medical History Arthritis Diabetes mellitus, type 2 Hyperlipidemia Hypertension Obesity PFO (patent foramen ovale) 2020 echo suggestive of atrial septal aneurysm and very small PFO measuring 1.5 mm in dimension, cardio aware Stroke 2020, reason for Brilinta Surgical History History of arthroscopy RT/LEFT KNEE History of colonoscopy History of total knee replacement LEFT Family History Father Diabetes Family history of diabetes mellitus Kidney stones Lung disease Hypertension Sister Diabetes Family history of diabetes mellitus Mother Anxiety Other No family history of adverse response to anesthesia Denies family history of Ovarian cancer Prostate cancer Myocardial infarction Breast cancer Colorectal cancer Social History Smoking Status: Never smoker Second Hand Exposure: No; Hx Alcohol Use: Yes Hx Substance Use: No Preferred Language: Upper Sorbian Communication Ability: Effective Visual Impairment: No Limitations Hearing Ability: Normal Production Control Analyst Required: No Beliefs That Will Affect Care: None marital status: Current Living Situation: Spouse current occupational status: employed Feels Safe at Home: Yes Safety Concerns: Feels Safe At This Time Dental Care, Regularly: No Assistive Devices: Glasses Review of Systems All systems reviewed & are unremarkable except as noted in HPI & below Physical Exam Constitutional: well developed and well nourished; no acute distress Eyes: PERRL, conjunctivae normal, anicteric sclerae ENMT: external ear and nose normal, oropharynx normal Neck: trachea midline, no thyromegaly Respiratory: normal respiratory effort, lungs clear to auscultation Cardiovascular: RRR, no murmur, no edema Musculoskeletal: Right knee: Varus alignment. There is moderate effusion. Tenderness medial joint line and IT band. Moderate crepitation. Stable valgus and varus stress test. Negative Nehemias's. Range of motion is 5 to 95 degrees. Skin: no rashes, warm and dry Neurologic: patellar DTR's 2+ bilat, sensation intact Psychiatric: A+Ox3, euthymic affect Results & Data Diagnostic Findings Right knee radiographs demonstrate varus alignment. Patient has [id number] medial compartment. Moderate arthritic changes patellofemoral compartment. There is periarticular osteophytes and subchondral sclerosis.
[2022-07-15] MEDS ORDERED: ROPIVACAINE 0.5% HCL/PF 150 MG, BUPIVACAINE 0.75% MPF 20 ML, EPINEPHrine 30MG/30ML (OR ... INSTIL SCH (06:00)
[2022-07-15] MEDS ORDERED: ACETAMINOPHEN 500 MG TAB PO SCH (06:00)
[2022-07-15] MEDS ORDERED: ceFAZolin 2000MG 2,000 MG/15 ML SYR IV SCH (06:00)
[2022-07-15] MEDS ORDERED: TRANEXAMIC ACID 1,000 MG **IV Pre-op IV SCH (06:00)
[2022-07-15] MEDS ORDERED: TRANEXAMIC ACID 1,000 MG **IV Intra-op IV SCH (06:00)
[2022-07-15] MEDS ORDERED: METOCLOPRAMIDE HCL 10 MG TABLET PO SCH (06:00)
[2022-07-15] MEDS ORDERED: FAMOTIDINE 20 MG TAB PO SCH (06:00)
[2022-07-15] MEDS ORDERED: GABAPENTIN 300 MG CAP PO SCH (06:00)
[2022-07-15] MEDS ORDERED: LR 500ML BOLUS, THEN 15ML/HR IV SCH (06:00)
[2022-07-15] MEDS ORDERED: CeleBREX 200 MG CAP PO SCH (06:00)
[2022-07-15] MEDS ORDERED: BUPIVACAINE 0.5 % 5 MG/1 ML PF 10ML VIAL ONE (06:36)
[2022-07-15] MEDS ORDERED: ROPIVACAINE 0.5% 5 MG/ML 30 ML VIAL ONE (06:36)
[2022-07-15] MEDS ORDERED: ONDANSETRON INJ 2 MG/ML 2 ML VIAL IV PRN ×2 (06:50→12:44)
[2022-07-15] MEDS ORDERED: ePHEDrine sulfate 50 MG/ML AMP IV PRN (06:50)
[2022-07-15] MEDS ORDERED: ATROPINE SULFATE 0.1 MG/ML 10ML SYR IV PRN (06:50)
[2022-07-15] MEDS ORDERED: fentaNYL citrate PF 100 MCG/2 ML VIAL IV PRN (06:50)
[2022-07-15] MEDS ORDERED: MIDAZOLAM HCL 1 MG/ML 2ML VIAL ONE (06:50)
[2022-07-15] MEDS ORDERED: ORTHO JOINT ANESTHETIC ONE (06:58)
--- NOTE | 2022-07-15 07:19 | History & Physical Bridge Note ---
Date of Service July 15, 2022 History & Physical Bridge Note I have examined the patient, reviewed the History & Physical and in the interval since the performance of the History & Physical I have noted the following changes of clinical significance: no changes noted
[2022-07-15] MEDS ORDERED: fentaNYL citrate PF 100 MCG/2 ML VIAL ONE ×2 (07:40→08:10)
[2022-07-15] MEDS ORDERED: LIDOCAINE 2% 20 MG/ML 5 ML SYR IV ONE (08:10)
[2022-07-15] MEDS ORDERED: PROPOFOL IV EMULSION 10 MG/ML 20 ML VIAL IV ONE (08:10)
[2022-07-15] MEDS ORDERED: ONDANSETRON INJ 2 MG/ML 2 ML VIAL ONE (08:10)
[2022-07-15] MEDS ORDERED: HYDROmorphone INJ 2 MG/ML SYR/VIAL ONE (08:11)
--- NOTE | 2022-07-15 09:10 | Operative Report ---
Post Operative Report Pre & Post Diagnosis Operation Date: 07/15/22 07:00 Pre-Op Diagnosis: Right Knee Osteoarthritis Post-Op Diagnosis: Right Knee Osteoarthritis I identified the patient and participated in the time-out.: Yes Procedure Operation Date: 07/15/22 07:00 Actual Procedures p Right Total Knee Arthroplasty(Right), eloy Acticoat superficial wound VAC- Devang Al MD Surgeon Devang Al MD Oxyhydrogen Welder Stephen ZAFAR Estimated Blood Loss 5 Findings Consistent with Post-Op Diagnosis Specimens Bone cuts Drains 2 Hemovac Anesthesia Type General Regional Complications none Disposition Accompanied Patient To Recovery: No Disposition: Recovery Room Indications 67-year-old male with chronic progressive osteoarthritis his right knee failed conservative management. Patient has successful left knee replacement in the past. Radiographs demonstrate patellofemoral medial compartment osteoarthritis varus knee [id number] medial compartment with moderately advanced patellofemoral osteoarthritis. Description of Procedure Patient taken to the operating room the size under spinal MAC regional block. The spinal was not setting in satisfactory so he was placed under general anesthetic anesthesia. Patient was placed supine on the operating table. A pneumatic tourniquet was placed about the right upper thigh. The right lower extremity was prepped and draped in sterile fashion. Knee exam demonstrated full range of motion no instability no pseudolaxity. The leg was elevated exsanguinated with an Esmarch bandage and pneumatic tourniquet was raised to 300 millimeters of mercury. Skin incised sharply in longitudinal fashion. Subcutaneous flaps elevated. Incision was made through the medial retinaculum extending up in the mid third of the quadriceps tendon and down to the medial tibial tubercle. Intra-articular findings demonstrated medial compartment and patellofemoral osteoarthritis with tricompartmental osteophytes and grade 4 medial compartment [id number] with chronic medial meniscus tear and grade 4 trochlea osteoarthritis grade 3 and 4 patella osteoarthritis. The [employer] total knee arthroplasty system was used. To expose the knee the infrapatellar fat pad was resected. The meniscal remnants and cruciate ligaments were resected. The anterior fat pad over the femur in the area of the anterior flange of the femoral component was resected. Lateral synovial bands release. The femur was exposed. An intramedullary drill hole was made into the canal. A guide diane was placed. Distal femoral cutting guide was adjusted to resect a 5 degree valgus cut with 8 millimeters distal femur resected. The knee was extended and a subperiosteal peel lateral release was performed around the patella. Patella width was measured and width was reproduced using a freehand cut technique and a 33 symmetrical patella component. The 3 drill holes were made and the excess lateral facet was beveled off to prevent any impingement. Attention was taken back to the femur which was exposed with retractors and the femoral sizing guide was pinned in position. The drill holes were placed in 3 of external rotation to match epicondylar axis. Femur sized for a 5 component. The 4-in-1 cutting block was placed and then the anterior posterior and chamfer cuts are made. The tibia was then subluxed. The external tibial cutting guide was just to make a perpendicular cut to the long axis of the tibia below the most deficient bone loss side. A lamina technology training associate was used and the flexion extension gaps were balanced. All posterior osteophytes removed. All meniscal remnants were resected. The tibia exposed and the trial tibial component size 5 was externally rotated in line with the tibial tubercle and pinned in position. The punch for stem was used. The notch cutting device was centered appropriately and the femoral notch cut was made. The femoral trial was inserted. Trial tibial inserts were placed and size 9 mm gave balanced ligaments through flexion and extension. Patella tracking was assessed. The patella tracked centrally. The trial components were then removed and the orthomix anesthetic cocktail was injected per protocol. The knee was then copiously irrigated with pulsatile lavage saline solution. Final components were then cemented with Refobacin cement. Final components were Nikolai triathlon size 5 right posterior stabilized femoral component, 5 universal tibial baseplate with a 9 mm posterior stabilized X.3 polyethylene tibial bearing insert and a 33 x 9 symmetrical X.3 polyethylene patella. After the cement cured the Betadine soak was used for 3 minutes. Further pulsatile lavage irrigation was then performed and 2 Hemovac drains were brought out laterally. The quadriceps tendon and medial retinaculum were closed with figure of 8 #1 Vicryl sutures. The knee was taken through full range of motion and the repair was secure. Knee range of motion was 0 through 130 degrees. The subcutaneous tissues were closed with 2-0 Vicryl sutures. Skin was closed with gila. Eloy and Acticoat superficial wound VAC was applied. The patient tolerated the procedure well. Stephen ZAFAR was my physician assistant professor of marine biology who participated as health assistant and was involved in all aspects of the procedure including patient positioning prepping and draping,leg positioning ,soft tissue retraction and instrument management and participated in the closing and eloy and Acticoat superficial wound VAC application and will participate in postoperative care of the patient. The patient tolerated the procedure well. I attest to the content of the Intraoperative Record and any orders documented therein. Any exceptions are noted below.
--- NOTE | 2022-07-15 10:04 | XRay Report ---
RIGHT KNEE 2 VIEWS History: Right total knee arthroplasty. Degenerative arthritis. Postop. FINDINGS: The patient is status post a right total knee arthroplasty. The hardware is intact. No frac ture or dislocation. Skin gila and surgical drains are in place. IMPRESSION: Right total knee arthroplasty. No evidence for hardware complication. ACT 112: Negative or not required by law. Electronically signed by: Kadeem Mendez M.D. 07/15/2022 10:03 AM
--- NOTE | 2022-07-15 10:10 | Anesthesiology Progress Note ---
Date of Service July 15, 2022 Anesthesia Post Procedure Vital Signs Vital Signs: Temp Pulse Pulse Resp BP Pulse Ox O2 Del Method 07/15/22 10:05 75 20 136/71 93 Room Air 07/15/22 09:55 72 12 124/86 95 Oxymask 07/15/22 09:45 76 16 104/70 96 Oxymask 07/15/22 09:39 98.1 F 83 16 110/74 96 Oxymask 07/15/22 05:50 97.7 F 77 18 143/85 H 96 Room Air O2 Flow Rate 07/15/22 10:05 07/15/22 09:55 6 07/15/22 09:45 9 07/15/22 09:39 9 07/15/22 05:50 Transfer of Care Handoff Completed per policy Notes Mental Status: alert / awake / arousable and participated in evaluation Patient Amnestic to Procedure: Yes Nausea / Vomiting: adequately controlled Pain: adequately controlled Airway Patency, RR, SpO2: stable & adequate BP & HR: stable & adequate Hydration State: stable & adequate Anesthetic Complications: no major complications apparent and Pt Satisfied with anesthetic care
[2022-07-15] MEDS ORDERED: diphenhydrAMINE 50 MG/ML VIAL IV PRN (12:44)
[2022-07-15] MEDS ORDERED: bisacodyL 10 MG SUPP PR PRN (12:44)
[2022-07-15] MEDS ORDERED: NALOXONE HCL 0.4 MG/1 ML VIAL/CARP IV PRN (12:44)
[2022-07-15] MEDS ORDERED: HYDROmorphone INJ 0.5 MG/0.5 ML SYR IV PRN (12:44)
[2022-07-15] MEDS ORDERED: MAGNESIUM HYDROXIDE SUSP 30 ML UDC PO PRN (12:44)
[2022-07-15] MEDS ORDERED: PHARMACY GLYCEMIC MGMT CONSULT PRN (13:45)
--- NOTE | 2022-07-15 13:57 | Pharmacy Report ---
Pharmacy Glycemic Short Note 2 - Date of Service July 15, 2022 - Glycemic Short BSG Results (Last 24 hours): 07/15/22 07/15/22 05:45 09:42 POC Glucose 118 H 117 H OUTPATIENT ANTIDIABETIC REGIMEN: * Metformin 1000 mg PO HS * Jardiance 10 mg PO daily * Trulicity 4.5 mg SC every Tuesday * HbA1c: 6.2% (07/15/22) ASSESSMENT: * 67 yo M admitted on 07/15/22 s/p R TKA. Pharmacy has been consulted to assist with inpatient glycemic management. Patient is a well controlled Type 2 diabetic as an outpatient. Please refer to outpatient regimen and most recent HbA1c above. * Ordered a T2DM diet. No steroids given perioperatively. * Preop BSG was 117 mg/dL. Pending postop BSG. * No basal insulin will be ordered. Start Novolog based on weight/stress of 1. PLAN FOR INPATIENT GLYCEMIC CONTROL: * Hold outpatient oral diabetes medications * Basal insulin * None * Bolus insulin * NovoLog per scale ACHS or Q6hrs while NPO * Goal Range: Low 110 mg/dL - High 140 mg/dL * Correction Factor: 40 mg/dL/unit * Nutritional / Prandial insulin per carb ratio of 1 unit per 15 grams CHO consumed
[2022-07-15] MEDS ORDERED: GLUCOSE 40% GEL 15 GM TUBE PO PRN (14:00)
[2022-07-15] MEDS ORDERED: GLUCAGON FOR INJ 1 MG VIAL IM PRN (14:00)
[2022-07-15] MEDS ORDERED: GLUCOSE 10 TAB/TUBE PO PRN (14:00)
[2022-07-15] MEDS ORDERED: DEXTROSE 50% 50 ML SYRINGE IV PRN (14:00)
[2022-07-15] MEDS ORDERED: CARBOHYDRATES FOR HYPOGLYCEMIA PO PRN (14:00)
[2022-07-15] MEDS: SODIUM CHLORIDE 0.9% 1000ML 1,000 ML IV SCH (14:16)
[2022-07-15] MEDS: ceFAZolin 2000MG 2,000 MG/15 ML SYR IV SCH (14:41)
[2022-07-15] MEDS: ACETAMINOPHEN 500 MG TAB PO SCH ×2 (14:41→21:34)
[2022-07-15] MEDS: oxyCODONE HCL IR 5 MG TAB (IMMEDIATE RELEASE) PO PRN ×2 (17:25→21:34)
[2022-07-15] MEDS: INSULIN ASPART PER UNIT CHARGE SC SCH ×2 (17:46→21:41)
--- NOTE | 2022-07-15 19:37 | Consultation ---
Date of Consultation July 15, 2022 Assessment & Plan (1) Primary osteoarthritis of right knee: s/p right TKR earlier today by Dr Al with minimal blood loss. Stable vitals and BSGs post-op. Stable exam exam post-op. DVT proph - asa 81mg BID - per orthopedics. Agree with CBC/BMP am. (2) Diabetes mellitus, type 2: Excellent control, previous HbA1C < 7%. Hold metformin. Hold jardiance. Agree with novolog SSI with current correction/carb ratio parameters. BMP in am for stability. Check BSGs ac/hs and DM diet. (3) Hypertension: Continue amlodipine. Hold lisinopril until BMP is checked tomorrow am for stability. (4) Hyperlipidemia: Cont crestor as previous. (5) History of stroke: Occurred while in the state of [place]. Only residual symptom is that of slight hand weakness and slight apraxia with hand-writing. Cont statin. Cont Brilinta for secondary prevention. Will be on aspirin as previous as well. (6) DVT prophylaxis: It appears primary orthopedic team has selected asa 81mg BID. Plan Thank you for this consult. We will follow with you. History of Present Illness Requesting Physician: Devang Al MD Reason for Consultation: post-op medical management Attending Physician: Devang Al MD History of Present Illness 67yo male with h/o prior L TKA, T2DM, HTN, CVA, and hyperlipidemia presented today for elective R TKA. I saw him on the orthopedic floor post-op and he was resting comfortably. Only complaint was that of pain in the right knee itself. Denied chest pain, dizziness, dyspnea, abd pain, nausea or emesis. Has voided since surgery. Passing flatus; no stool. Able to eat a meal since surgery without difficulty. Allergies Allergy/AdvReac Type Severity Reaction Status Date / Time codeine AdvReac Mild N/V Verified 07/15/22 05:48 Tylenol with Codeine #3 TABS AdvReac Mild N/V Uncoded 07/15/22 05:48 Home Medications Medication Instructions Recorded Confirmed Type aspirin 81 mg tablet,delayed 81 mg PO HS 03/20/18 07/15/22 History release blood sugar diagnostic (OneTouch #200 ea 01/27/22 05/14/22 Rx Verio test strips) dulaglutide 4.5 mg/0.5 mL 4.5 mg (0.5 mL) subcut Q7D #2 mL 06/02/22 07/15/22 Rx subcutaneous pen injector amlodipine 10 mg tablet 10 mg PO HS 06/25/22 07/15/22 History empagliflozin 10 mg tablet 10 mg PO QAM 06/25/22 07/15/22 History (Jardiance) metformin 500 mg tablet,extended 1,000 mg PO HS 06/25/22 07/15/22 History release 24 hr rosuvastatin 40 mg tablet 40 mg PO HS 06/25/22 07/15/22 History ticagrelor 90 mg tablet (Brilinta) 90 mg PO HS 06/25/22 07/15/22 History lisinopril 2.5 mg tablet 2.5 mg PO DAILY #30 tabs 07/12/22 07/15/22 Rx Patient History Medical History Arthritis Diabetes mellitus, type 2 Hyperlipidemia Hypertension Obesity PFO (patent foramen ovale) 2020 echo suggestive of atrial septal aneurysm and very small PFO measuring 1.5 mm in dimension, cardio aware Stroke 2020, reason for Brilinta Surgical History History of arthroscopy RT/LEFT KNEE History of colonoscopy History of total knee replacement LEFT Family History Father Diabetes Family history of diabetes mellitus Kidney stones Lung disease Hypertension Sister Diabetes Family history of diabetes mellitus Mother Anxiety Other No family history of adverse response to anesthesia Denies family history of Ovarian cancer Prostate cancer Myocardial infarction Breast cancer Colorectal cancer Social History (Updated 07/16/22 @ 03:39 by Christophe Davies) Smoking Status: Never smoker Second Hand Exposure: No; Hx Alcohol Use: Yes Hx Substance Use: No Preferred Language: Estonian Communication Ability: Effective Visual Impairment: No Limitations Hearing Ability: Normal [employer] Required: No Beliefs That Will Affect Care: None marital status: Current Living Situation: Spouse current occupational status: employed current occupation: [employer]. How many Children do You have: 3 Feels Safe at Home: Yes Dental Care, Regularly: No Assistive Devices: Glasses Review of Systems Review of Systems: gen - recent intentional weight loss; good appetite; no fevers eyes - no vision changes HENT - no sore throat, nasal congestion or dysphagia heart - no chest pain pulm - no cough, no dyspnea GI - no abd pain, nausea, emesis - no LUTS musculo - right knee pain only neuro - no paresthesias, no headaches endo - excellent DM control, BSGs <200 Physical Exam Physical Exam: gen - sitting in chair comfortably, NAD, pleasant eyes - PERRL HENT - MMM, no lesions neck - no JVD, no masses, no lymph nodes heart - RRR, s1 s2, no murmur lungs - CTA b/l, mild dry rales bases abd - soft NT ND BS+ ext - right knee with drain in place, ROSEANN wrap; left knee TKR scar; pulses feet 2+ b/l neuro - strength 5/5 x 4 exts except R handgrip 4-5/5 (chronic) psych - a/o x 3 Results & Data Vital Signs (Past 12 Hours) Vital Signs Temp Pulse Pulse Resp BP BP Pulse Ox 07/15/22 19:31 36.4 C L 71 16 137/77 94 07/15/22 14:14 36.5 C 76 16 125/77 96 07/15/22 13:55 36.5 C 58 L 20 127/72 94 07/15/22 12:45 36.4 C L 72 16 127/78 95 07/15/22 12:15 61 20 115/64 95 07/15/22 11:45 66 20 113/68 95 07/15/22 11:15 62 14 118/64 95 07/15/22 11:00 65 12 125/64 97 07/15/22 10:45 60 14 123/75 98 07/15/22 10:30 70 12 136/70 97 07/15/22 10:15 36.4 C L 75 12 130/69 98 07/15/22 10:05 75 20 136/71 93 07/15/22 09:55 72 12 124/86 95 07/15/22 09:45 76 16 104/70 96 07/15/22 09:39 36.7 C 83 16 110/74 96 O2 Del Method O2 Flow Rate 07/15/22 19:31 Room Air 07/15/22 14:14 Room Air 07/15/22 13:55 Nasal Cannula 2 07/15/22 12:45 Nasal Cannula 2 07/15/22 12:15 Nasal Cannula 2 07/15/22 11:45 Nasal Cannula 2 07/15/22 11:15 Nasal Cannula 2 07/15/22 11:00 Nasal Cannula 2 07/15/22 10:45 Nasal Cannula 2 07/15/22 10:30 Room Air 07/15/22 10:15 Room Air 07/15/22 10:05 Room Air 07/15/22 09:55 Oxymask 6 07/15/22 09:45 Oxymask 9 07/15/22 09:39 Oxymask 9 Laboratory Results Laboratory Results - last 24 hr 07/15/22 07/15/22 07/15/22 05:15 05:45 09:42 POC Glucose 118 H 117 H SARS-CoV-2, RNA, NAAT NEGATIVE 07/15/22 07/15/22 17:11 20:42 POC Glucose 113 H 93 SARS-CoV-2, RNA, NAAT PG Care Time/CCT Total # of Minutes Spent Total Time Spent with Patient: Total time spent is greater than 50% in coordination of care (as documented) at patient's floor/unit and/or counseling patient: Coding Level of Care Code 04242 IN/OBS CONSULT LVL 2,35M Diagnoses Primary osteoarthritis of right knee M17.11 Diabetes mellitus, type 2 E11.9 Hypertension I10 Hyperlipidemia E78.5 History of stroke Z86.73 DVT prophylaxis Z29.9
[2022-07-15] MEDS: DOCUSATE SODIUM 100 MG CAP PO SCH (20:37)
[2022-07-15] MEDS: ASPIRIN 81 MG ECTAB PO SCH (20:37)
[2022-07-15] MEDS ORDERED: metFORMIN HCL ER 500 MG TABCR PO SCH (21:00)
[2022-07-15] MEDS ORDERED: TICAGRELOR 90 MG TAB PO SCH (21:00)
[2022-07-15] MEDS ORDERED: SENNA 8.6 MG TAB PO SCH (21:00)
[2022-07-15] MEDS ORDERED: ROSUVASTATIN CALCIUM 20 MG TAB PO SCH (21:00)
[2022-07-15] MEDS ORDERED: amLODIPine BESYLATE 5 MG TAB PO SCH (21:00)
[2022-07-16] MEDS: ceFAZolin 2000MG 2,000 MG/15 ML SYR IV SCH
[2022-07-16] MEDS: SODIUM CHLORIDE 0.9% 1000ML 1,000 ML IV SCH (00:04)
[2022-07-16] MEDS: ACETAMINOPHEN 500 MG TAB PO SCH (05:55)
[2022-07-16] MEDS: oxyCODONE HCL IR 5 MG TAB (IMMEDIATE RELEASE) PO PRN (05:59)
[2022-07-16] MEDS: DOCUSATE SODIUM 100 MG CAP PO SCH (07:30)
[2022-07-16] MEDS: ASPIRIN 81 MG ECTAB PO SCH (07:30)
[2022-07-16] MEDS: INSULIN ASPART PER UNIT CHARGE SC SCH (07:35)
[2022-07-16] MEDS ORDERED: lisinopril 2.5 MG TAB PO SCH (09:00)
[2022-07-16] MEDS ORDERED: MULTIVITAMIN TAB PO SCH (09:00)
[2022-07-16] MEDS ORDERED: EMPAGLIFLOZIN 10 MG TAB PO SCH (09:00)
--- NOTE | 2022-07-16 09:04 | Pharmacy Report ---
Glycemic Ortho Sign Off Note - Date of Service July 16, 2022 - Scope Glycemic Pharmacist consulted for glycemic control and to write orders per [facility] inpatient glycemic control protocol. - Objective Accuchecks BSG (last 24hrs):: 07/15/22 07/15/22 07/15/22 09:42 17:11 20:42 POC Glucose 117 H 113 H 93 07/16/22 06:28 POC Glucose 124 H - Assessment * Pt is maintained on oral antidiabeticagentsas anoutpatient with excellent control per recent A1c * Oral agents are not recommended for inpatient use d/t drug interactions, changing PO intake, and difficulty titrating for acute hyper/hypoglycemia. * Recommended regimen for inpatient use is SQ insulin * Low stress weight based insulin dosing appropriate since patient has minimal risk factors for insulin resistance (i.e. no steroids). * Appropriate to DC insulin and resume outpatient antidiabetic regimen at discharge * Goal is to maintain BSGs <200 mg/dl (ideally <150 mg/dl) to prevent post op complications - Plan For Inpatient Glycemic Control * Basal insulin * Not needed based on A1c, pre-op BSGs, and minimal risk factors for insulin resistance * Bolus insulin * Utilize low stress weight based NovoLog parameters per scale ACHS * Pharmacy has entered glycemic orders and is signing off of the glycemic consult. We will no longer be making adjustments to inpatient regimen. Please feel free to re-consult if needed. Thank you.
[2022-07-16 09:21] LABS: Hematocrit (blood only) 46.4 % (42.0-52.0); Hemoglobin 15.2 g/dl (14.0-18.0); Mean Corpuscular Hemoglobin 28.8 pg (25.0-34.0); Mean Corpuscular Hgb Conc 32.8 g/dL (32.0-36.0); Mean Corpuscular Volume 87.9 fL (80.0-100.0); Mean Platelet Volume 9.8 fL (9.4-12.4); Platelet Count 182 K/uL (130-400); RDW Coefficient of Variation 14.5 % (11.5-14.5); RDW Standard Deviation 46.5 fL (36.4-46.3); Red Blood Count 5.28 M/uL (4.70-6.10)
--- NOTE | 2022-07-16 09:39 | Orthopedic Progress Note ---
Date of Service July 16, 2022 Assessment & Plan (1) Primary osteoarthritis of right knee: Plan: Postop day 1 status post right total knee arthroplasty PT/OT protocols. Weightbearing as tolerated. DVT prophylaxis-patient takes Brilinta 1 tab p.o. daily, continue aspirin p.o. twice daily, SCDs, PRISCILA prajapati Pain management as written. DC planning-patient is planning for outpatient PT upon discharge. Plan for discharge to home today. Admission and Anticipated Discharge Date Admission Date: July 15, 2022 Subjective Postop day 1 Patient sitting in the chair at bedside. No complaints this morning. Pain is controlled. He states that Dr. Al came by to see him this morning. Denies shortness of breath, chest pain, lightheadedness. He is hoping to go home today. Physical Exam Physical Exam: Dressings are clean, dry, and intact. Calves are soft nontender. Neurovascular intact. Toes are mobile. He had 100 cc of drainage from his Hemovac from the previous shift. Results & Data Vital Signs (Past 12 Hours) Vital Signs Temp Pulse Resp BP BP Pulse Ox O2 Del Method 07/16/22 06:16 36.5 C 77 16 153/83 H 95 Room Air 07/16/22 04:08 36.4 C L 76 16 130/76 94 Room Air 07/16/22 00:00 36.4 C L 84 16 154/84 H 93 Room Air Laboratory Results Laboratory Results WBC 10.20 K/ul (4.8-10.8) 07/16/22 08:45 RBC 5.28 M/uL (4.70-6.10) 07/16/22 08:45 Hgb 15.2 g/dl (14.0-18.0) 07/16/22 08:45 Hct 46.4 % (42.0-52.0) 07/16/22 08:45 MCV 87.9 fL (80.0-100.0) 07/16/22 08:45 MCH 28.8 pg (25.0-34.0) 07/16/22 08:45 MCHC 32.8 g/dL (32.0-36.0) 07/16/22 08:45 RDW Std Deviation 46.5 fL (36.4-46.3) H 07/16/22 08:45 RDW Coeff of Gena 14.5 % (11.5-14.5) 07/16/22 08:45 Plt Count 182 K/uL (130-400) 07/16/22 08:45 MPV 9.8 fL (9.4-12.4) 07/16/22 08:45 POC Glucose 124 mg/dl (70-99) H 07/16/22 06:28 SARS-CoV-2, RNA, NAAT NEGATIVE (NEGATIVE) 07/15/22 05:15 Impressions Knee X-Ray 07/15/22 09:41 RIGHT KNEE 2 VIEWS History: Right total knee arthroplasty. Degenerative arthritis. Postop. FINDINGS: The patient is status post a right total knee arthroplasty. The hardware is intact. No fracture or dislocation. Skin gila and surgical drains are in place. IMPRESSION: Right total knee arthroplasty. No evidence for hardware complication. ACT 112: Negative or not required by law. Electronically signed by: Kadeem Mendez M.D. 07/15/2022 10:03 AM
[2022-07-16 09:56] LABS: BUN Creatinine Ratio 14.6 (10-20); Calcium 8.7 mg/dl (8.6-10.3); Creatinine Clr Calc Pharmacy 65.8 ml/min; Est GFR (African American) 95.1 ml/min; Potassium 4.4 mmol/L (3.5-5.1)
[2022-07-16] MEDS ORDERED: lisinopril 2.5 MG TAB PO ONE (10:45)
--- NOTE | 2022-07-16 13:52 | Communication Note ---
Date of Service: July 16, 2022 Chart review performed - stable vital signs overnight. Labs this am all acceptable including creatinine. BSGs also acceptable. OK to resume usual diabetic medication and all anti-hypertensives. Resume brilenta for stroke prevention when ok with primary orthopedic service. Will sign off. Please call with any further medical questions. Thank you for the consult. Christophe Davies MD
--- NOTE | 2022-07-19 15:21 | Discharge Summary ---
Date of Service July 19, 2022 Admission HPI Per Admitting Provider Patient is 67-year-old male with past medical history significant for hypertension, high cholesterol, diabetes, CVA, previous left knee replacement who presents with ongoing right knee pain. Patient has pain interfering with his daily activities. He has failed conservative measures. He would like to proceed with surgical intervention. Patient denies headaches, sweats, fevers, chills, double vision, blurred vision, cough, sore throat, dysphagia, chest pain, sob, wheezing, n/v/d/c, numbness, tingling, fatigue, urinary symptoms, mood disorders. ROS positive for right knee pain and stiffness. Admission Exam Per Admitting Provider Physical Exam Constitutional: well developed and well nourished; no acute distress Eyes: PERRL, conjunctivae normal, anicteric sclerae ENMT: external ear and nose normal, oropharynx normal Neck: trachea midline, no thyromegaly Respiratory: normal respiratory effort, lungs clear to auscultation Cardiovascular: RRR, no murmur, no edema Musculoskeletal: Right knee: Varus alignment. There is moderate effusion. Tenderness medial joint line and IT band. Moderate crepitation. Stable valgus and varus stress test. Negative Nehemias's. Range of motion is 5 to 95 degrees. Skin: no rashes, warm and dry Neurologic: patellar DTR's 2+ bilat, sensation intact Psychiatric: A+Ox3, euthymic affect Principal Diagnosis Right Knee Djd Discharge Data Allergies Allergy/AdvReac Type Severity Reaction Status Date / Time codeine AdvReac Mild N/V Verified 07/15/22 05:48 Tylenol with Codeine #3 TABS AdvReac Mild N/V Uncoded 07/15/22 05:48 Consultations 07/13/22 09:53 Consult Hospitalist Routine Procedures Performed Operation Date: 07/15/22 07:00 Actual Procedures p Right Total Knee Arthroplasty(Right) - Devang Al MD Ordered Studies 07/15/22 05:00 US - OR guided needle placemen Routine Hospital Course (1) Primary osteoarthritis of right knee: Patient:PARISH GOFF Admit Date:07/15/22 MR#:[id number] Att Phy:Devang Al M.D. Acct ID:[id number] Shivani Phy:GibsonHailee CRNP Date:1955 Don Phy: Age:67 Location:3E Sex:M Room/Bed:[facility] cc: ~ *NOTICE TO RECEIVING GREEN PARTY/AGENCY This information is strictly Confidential and protected under [place] law. [place] law prohibits you from making any further disclosure of this information unless further disclosure is expressly permitted by the written consent of the person to whom it pertains or is authorized by law. A general authorization for the release of medical or other information is not sufficient for this purpose. Hospital accepts no responsibility if the information is made available to any other person, INCLUDING THE PATIENT. Date of Service July 16, 2022 Assessment & Plan (1) Primary osteoarthritis of right knee: Plan: Postop day 1 status post right total knee arthroplasty PT/OT protocols. Weightbearing as tolerated. DVT prophylaxis-patient takes Brilinta 1 tab p.o. daily, continue aspirin p.o. twice daily, SCDs, PRISCILA hose Pain management as written. DC planning-patient is planning for outpatient PT upon discharge. Plan for discharge to home today. Admission and Anticipated Discharge Date Admission Date: July 15, 2022 Subjective Postop day 1 Patient sitting in the chair at bedside. No complaints this morning. Pain is controlled. He states that Dr. Al came by to see him this morning. Denies shortness of breath, chest pain, lightheadedness. He is hoping to go home today. Physical Exam Physical Exam: Dressings are clean, dry, and intact. Calves are soft nontender. Neurovascular intact. Toes are mobile. He had 100 cc of drainage from his Hemovac from the previous shift. Results & Data Vital Signs (Past 12 Hours) Vital Signs Temp Pulse Resp BP BP Pulse Ox O2 Del Method 07/16/22 06:16 36.5 C 77 16 153/83 H 95 Room Air 07/16/22 04:08 36.4 C L 76 16 130/76 94 Room Air 07/16/22 00:00 36.4 C L 84 16 154/84 H 93 Room Air Laboratory Results Laboratory Results WBC 10.20 K/ul (4.8-10.8) 07/16/22 08:45 RBC 5.28 M/uL (4.70-6.10) 07/16/22 08:45 Hgb 15.2 g/dl (14.0-18.0) 07/16/22 08:45 Hct 46.4 % (42.0-52.0) 07/16/22 08:45 MCV 87.9 fL (80.0-100.0) 07/16/22 08:45 MCH 28.8 pg (25.0-34.0) 07/16/22 08:45 MCHC 32.8 g/dL (32.0-36.0)C 07/16/22 08:45 RDW Std Deviation 46.5 fL (36.4-46.3) H 07/16/22 08:45 RDW Coeff of Gena 14.5 % (11.5-14.5) 07/16/22 08:45 Plt Count 182 K/uL (130-400) 07/16/22 08:45 MPV 9.8 fL (9.4-12.4) 07/16/22 08:45 POC Glucose 124 mg/dl (70-99) H 07/16/22 06:28 SARS-CoV-2, RNA, NAAT NEGATIVE (NEGATIVE) 07/15/22 05:15 Impressions Knee X-Ray 07/15/22 09:41 RIGHT KNEE 2 VIEWS History: Right total knee arthroplasty. Degenerative arthritis. Postop. FINDINGS: The patient is status post a right total knee arthroplasty. The hardware is intact. No fracture or dislocation. Skin gila and surgical drains are in place. IMPRESSION: Right total knee arthroplasty. No evidence for hardware complication. ACT 112: Negative or not required by law. Electronically signed by: Kadeem Mendez M.D. 07/15/2022 10:03 AM Signed By: <Electronically signed by Devang Al MD> 07/19/22 0711 <Electronically signed by Stephen Vogel PA-C> 07/16/22 0942 Created:07/16/22 0936 Total Time Total Time Spent Total Time Spent (In Minutes): 5 Discharge Plan Discharge Items Patient Disposition: Home - Self-Care Reason For Visit: Right Knee Osteoarthritis Discharge Diagnosis: right knee osteoarthritis Activity: Per Instructions section Weightbearing: Right weightbearing Weightbearing Comment: As tolerated with walker Non-emergency contact: Surgeon Call non-emergency contact if: you have any medication questions, your pain is not controlled, your pain is concerning for you, you have a fever, your temperature is above 101, your wound has increased redness and your wound has increased drainage Follow-up/Referrals: Hailee Arreaga CRNP [Primary Care Provider] - Devang Al MD [Surgeon] - (Follow-up with Dr. Al or his PA in 2 weeks from the day of your surgery for your first postoperative visit.) Diet: Regular Addtl Attending Provider Instructions: ACTIVITY RECOMMENDATIONS: SELF CARE INSTRUCTIONS AFTER TOTAL KNEE REPLACEMENT A. You may need to continue a physical therapy program after discharge from the hospital. There are several options available to you. Your doctor will assist you in selecting the best one for you. 1. An out-patient facility 2 to 3 times a week for therapy or home therapy. 2. Continue working on all exercises taught to you in the hospital. Your goals should be to increase bending of your knee to 90 degrees and beyond and to fully straighten your knee. B. You may progress at your own pace from walking with a walker or crutches to a cane; then to no assistive devices. C. Make walking a part of your daily routine. Be up as much as comfortable with rest periods throughout the day. Rest with leg elevation is very important. Use the ice wrap frequently for the first 3-4 weeks. D. There are no restrictions on activities. You may ride in a car, shop, participate in barrel rifler hook and all social activities. E. Wear the long elastic stockings (PRISCILA hose) 20 hours a day for 2 weeks after surgery. They can be removed several times a day for laundering and for a bath. F. You may shower, no tub baths until cleared by your doctor. SPECIAL CARE INSTRUCTIONS: VERY IMPORTANT TO READ AND REVIEW A. There are a few signs you need to watch for after you are home. Call [facility] [place] if you notice any of the followin. Increased severe knee pain. Some pain is expected especially when you exercise. 2. Increased swelling in your leg or knee; pain or swelling of the calf mu scle in either lower leg. 3. Any fluid drainage from the incision. 4. Shortness of breath or chest pain. B. Please call [facility] at if you have any concerns or questions about your operation or recovery. The doctor or his nurse will return your call promptly. C. You must take antibiotics before dental work, bladder, bowel or other surgery. Your doctor will provide you with a permanent care to carry describing this precaution. IMPORTANT: * REMEMBER TO TAKE ASPIRIN, 81 MG, TWICE DAILY FOR 4 WEEKS UNLESS OTHERWISE DIRECTED. THIS IS YOUR BLOOD THINNER. * HIGH RISK PATIENTS MAY BE PRESCRIBED A STRONGER BLOOD THINNER. THIS WILL BE PROVIDED AT DISCHARGE. * CALL IF INCREASED PAIN, REDNESS, DRAINAGE OR FEVER GREATER THAT 101. * WEAR PRISCILA HOSE 20 HOURS PER DAY FOR 2 WEEKS. * This is a large suction dressing covering your incision. This will help pull any excess drainage from the wound and allow your incision to heal properly. You may shower with this if you can keep the unit outside of the shower. If any bleeding or leakage is noted please call your doctor's office. This will remain on your incision for 7 days and then should be removed. This can be done yourself or by the home nursing staff if applicable. The entire unit is disposable once removed. Once removed, keep incision clean and dry. If redness or drainage is noted, please call your surgeon. IF INCISION IS LEAKING THROUGH DRESSING, CALL THE OFFICE . FOLLOW UP VISIT: If appointment is not already scheduled: Please call [facility] [place] to make a follow-up appointment for 2 weeks after your surgery at . Stand-Alone Forms: My [facility], Pain - Opioid Pain Management, Smoking Cessation Medications and DC Order Prescriptions: New aspirin 81 mg Tablet,Delayed Release (Dr/Ec) 81 mg PO BID 30 Days Qty: 60 0RF acetaminophen [Tylenol Extra Strength] 500 mg Tablet 1,000 mg PO Q8 14 Days Qty: 84 0RF polyethylene glycol 3350 [Miralax] 17 gram powder in packet 17 g PO DAILY PRN (Reason: constipation) Qty: 5 0RF cefadroxil 500 mg capsule 500 mg PO BID Qty: 14 0RF oxycodone 5 mg tablet 5 mg PO Q4H MDD 6 PRN (Reason: pain) Qty: 30 0RF Continued dulaglutide 4.5 mg/0.5 mL pen injector 4.5 mg subcut Q7D Qty: 2 5RF Patient Comments: takes on sundays Rx Instructions: take one time weekly on the same day lisinopril 2.5 mg tablet 2.5 mg PO DAILY Qty: 30 5RF (DME) OneTouch Verio test strips Strip See Rx Instructions .Route Qty: 200 5RF Rx Instructions: test blood sugar twice daily amlodipine 10 mg tablet 10 mg PO HS metformin 500 mg tablet extended release 24 hr 1,000 mg PO HS rosuvastatin 40 mg tablet 40 mg PO HS Brilinta 90 mg tablet 90 mg PO HS Patient Comments: pt states takes only 90mg HS Jardiance 10 mg tablet 10 mg PO QAM Discontinued aspirin 81 mg Tablet,Delayed Release (Dr/Ec) 81 mg PO HS Discharge Orders: Discharge Order (Routine); Ordered 07/16/22 Ordered By: Stephen Atwood/Other Patient Handouts: DVT Post Op Prevention Admission Data Admit Date/Time: 07/15/22 09:41 Attending Provider: Devang Al Admit Provider: Devang Al Primary Care Provider: Hailee Arreaga Other Providers: Christophe Davies Thomas E. Other Interventions: Discharge Summary Assessment (RN) Last Done: 07/16/22 08:55
== END 2022-07-16 11:18 | disposition home or self-care (01) ==
LOC: ASU 05:15 → 3E 05:15